=== PATIENT | female | born 1995 | race Two or more races ===

== ENCOUNTER 2022-08-16 07:36 | Emergency (ER) | payer OTHER ==
[~2022-08-16] VITALS: Ht 152.4 cm; Wt 71.7 kg
== END 2022-08-16 13:08 | disposition home or self-care (01) ==
LOC: ER 07:36
DX: B34.8 Other viral infections of unspecified site (principal); Z20.828 Contact with and (suspected) exposure to other viral communicable diseases

== ENCOUNTER 2022-09-25 07:55 | Outpatient (CLI) | payer OTHER | END 2022-09-25 09:15 | disposition home or self-care (01) | LOC: PRENATAL 07:55 | PROVIDERS: ATTEND Obstetrics & Gynecology Maternal & Fetal Medicine | DX: O35.9XX0 Maternal care for (suspected) fetal abnormality and damage, unspecified, not applicable or unspecified (principal); O35.3XX0 Maternal care for (suspected) damage to fetus from viral disease in mother, not applicable or unspecified; Z3A.20 20 weeks gestation of pregnancy ==

== ENCOUNTER 2022-11-20 15:08 | Outpatient (CLI) | payer OTHER | END 2022-11-20 16:02 | disposition home or self-care (01) | LOC: PRENATAL 15:08 | PROVIDERS: ATTEND Obstetrics & Gynecology Maternal & Fetal Medicine | DX: O26.849 Uterine size-date discrepancy, unspecified trimester (principal); Z3A.28 28 weeks gestation of pregnancy ==

== ENCOUNTER 2023-01-01 14:45 | Outpatient (CLI) | payer OTHER | END 2023-01-02 17:40 | disposition home or self-care (01) | LOC: OBS/DEL 14:45 | PROVIDERS: ATTEND Obstetrics & Gynecology | DX: O26.893 Other specified pregnancy related conditions, third trimester (principal); R42 Dizziness and giddiness; S30.0XXA Contusion of lower back and pelvis, initial encounter; W19.XXXA Unspecified fall, initial encounter; Y93.89 Activity, other specified; Y92.098 Other place in other non-institutional residence as the place of occurrence of the external cause; Y99.8 Other external cause status; Z3A.34 34 weeks gestation of pregnancy; Z20.822 Contact with and (suspected) exposure to COVID-19 ==

== ENCOUNTER 2023-02-11 06:46 | Inpatient (IN) | payer OTHER ==
[~2023-02-11] VITALS: Ht 152.4 cm; Wt 3.2 kg
[2023-02-11] MEDS ORDERED: NEXIUM 24HR20 M1 PO (07:35)
[2023-02-11] MEDS ORDERED: PRENATAL TABLE1 EAC1 PO (07:35)
== END 2023-02-14 12:56 | disposition home or self-care (01) | DRG 788 ==
LOC: OBS/DEL 06:46 → LDR 07:52 → OB/GYN 07:52 → O/R 17:49 → OB/GYN 20:06
PROVIDERS: ADMIT Obstetrics & Gynecology; ATTEND Obstetrics & Gynecology
PROC: 4A1HXCZ Monitoring of Products of Conception, Cardiac Rate, External Approach (ICD-10-PCS; 2023-02-11)
PROC: 3E033VJ Introduction of Other Hormone into Peripheral Vein, Percutaneous Approach (ICD-10-PCS; 2023-02-11)
PROC: 3E0P7VZ Introduction of Hormone into Female Reproductive, Via Natural or Artificial Opening (ICD-10-PCS; 2023-02-11)
PROC: 10D00Z1 Extraction of Products of Conception, Low, Open Approach (ICD-10-PCS; principal; 2023-02-11 17:00)
DX: O61.0 Failed medical induction of labor (principal); Z3A.40 40 weeks gestation of pregnancy; Z37.0 Single live birth; Z20.822 Contact with and (suspected) exposure to COVID-19

== ENCOUNTER → 2023-03-25 | Emergency (ER) | payer OTHER ==
[~2023-03-25] MED LIST: NEXIUM 24HR20 M1 PO; PRENATAL TABLE1 EAC1 PO
== END | disposition left against medical advice (07) ==
LOC: ER 18:19
DX: Z53.21 Procedure and treatment not carried out due to patient leaving prior to being seen by health care provider (principal)

== ENCOUNTER 2023-07-09 19:36 | Emergency (ER) | payer OTHER ==
[~2023-07-09] VITALS: Ht 152.4 cm; Wt 77.1 kg
[2023-07-09 22:16] LABS: HEMATOCRIT 38.3 % (36.0-45.00); HEMOGLOBIN 12.5 g/dL (12.0-15.00); MEAN CORPUSCULAR HEMOGLOBIN 26.8 pg (27.00-32.0); MEAN CORPUSCULAR HGB CONC 32.7 g/dl (32.0-36.0); PLATELET COUNT 236 K/uL (150-450); RED BLOOD COUNT 4.67 M/uL (4.00-6.00); RED CELL DISTRIBUTION WIDTH 15.6 % (11.5-14.5)
== END 2023-07-09 22:52 | disposition home or self-care (01) ==
LOC: ER 19:36
PROVIDERS: General Practice
DX: J06.9 Acute upper respiratory infection, unspecified (principal); Z20.822 Contact with and (suspected) exposure to COVID-19

== ENCOUNTER 2024-07-23 11:40 | Emergency (ER) | payer OTHER ==
[~2024-07-23] VITALS: Ht 152.4 cm; Wt 73.5 kg
[2024-07-23] MEDS ORDERED: [UNRECOGNIZED DRUG - OTHER] OP (13:58)
[2024-07-23] MEDS ORDERED: EYE WASH IRRIG OP (13:58)
[2024-07-23 14:52] VITALS: BP 101/69; O2SAT 99
== END 2024-07-23 14:53 | disposition home or self-care (01) ==
LOC: ER 11:40
DX: S05.8X2A Other injuries of left eye and orbit, initial encounter (principal); X58.XXXA Exposure to other specified factors, initial encounter; Y93.89 Activity, other specified; Y92.89 Other specified places as the place of occurrence of the external cause; Y99.8 Other external cause status; R53.81 Other malaise

== ENCOUNTER 2024-07-27 04:00 | Outpatient (CLI) | payer OTHER ==
[~2024-07-27 04:00] MED LIST changes: +EYE WASH IRRIG OP; +[UNRECOGNIZED DRUG - OTHER] OP
[2024-08-13] MEDS ORDERED: DICLOFENAC SODI75 MG PO (22:03)
== END 2024-07-27 04:15 | disposition home or self-care (01) ==
LOC: PPH VACUNA 04:00
PROVIDERS: ATTEND Emergency Medicine Pediatric Emergency Medicine
DX: Z23 Encounter for immunization (principal)

== ENCOUNTER 2024-08-07 11:36 | Emergency (ER) | payer OTHER ==
[~2024-08-07] VITALS: Ht 152.4 cm; Wt 72.6 kg
[2024-08-07] MEDS ORDERED: 0.9 % SODIUM CHLORIDE 1,000 ML IV STA (13:41)
[2024-08-07] MEDS ORDERED: FAMOTIDINE/PF 20 MG/2 ML VIAL IV STA (14:01)
[2024-08-07] MEDS ORDERED: ONDANSETRON HCL 2 MG/ML VIAL IV STA (14:01)
[2024-08-07 14:36] LABS: HEMATOCRIT 40.3 % (36.0-45.00); MEAN CELL VOLUME 86.4 fL (80.00-100.00); MEAN CORPUSCULAR HEMOGLOBIN 27.9 pg (27.00-32.0); MEAN CORPUSCULAR HGB CONC 32.3 g/dl (32.0-36.0); PLATELET COUNT 254 K/uL (150-450); RED BLOOD COUNT 4.66 M/uL (4.00-6.00); RED CELL DISTRIBUTION WIDTH 14.6 % (11.5-14.5)
[2024-08-07 15:05] LABS: ALBUMIN 4.2 gm/dL (3.4-5.0); BILIRUBIN TOTAL 1.35 mg/dL (0.3-1.2); CALCIUM 9.4 mg/dL (8.5-10.1); CREATININE SERUM 0.72 mg/dL (0.55-1.02); GFR 97.17; POTASSIUM 4.04 mEq/L (3.5-5.1); TOTAL PROTEIN 8.2 gm/dL (6.4-8.2)
== END 2024-08-07 16:43 | disposition home or self-care (01) ==
LOC: ER 11:38
PROVIDERS: Emergency Medicine
DX: K52.1 Toxic gastroenteritis and colitis (principal)

== ENCOUNTER → 2024-12-28 14:16 | Outpatient (CLI) | payer OTHER ==
[~2024-12-28 14:16] MED LIST changes: +DICLOFENAC SODI75 MG PO
== END | disposition home or self-care (01) ==
LOC: LAB 14:16
PROVIDERS: ATTEND Preventive Medicine Occupational Medicine
DX: J11.1 Influenza due to unidentified influenza virus with other respiratory manifestations (principal); Z20.828 Contact with and (suspected) exposure to other viral communicable diseases

== ENCOUNTER 2025-06-03 08:22 | Emergency (ER) | payer OTHER ==
[~2025-06-03] VITALS: Ht 152.4 cm; Wt 72.6 kg
[2025-06-03] MEDS ORDERED: 0.9 % SODIUM CHLORIDE 1,000 ML IV STA (08:43)
[2025-06-03 09:51] LABS: BASO % 0.1 % (0.1-1.2); EOS # 0.02 (0.04-0.54); EOS % 0.2 % (0.7-7.0); LYMPH # 0.71 (1.18-3.74); LYMPH % 7.5 % (19.3-53.1); MEAN PLATELET VOLUME 11.30 fl (9.4-12.4); MONO # 0.65 (0.24-0.82); MONO % 6.9 % (4.7-12.5); NEUT # 7.99 (1.56-6.13); NEUT % 84.8 % (34.0-71.1); RED CELL DISTRIBUTION WIDTH 12.8 % (11.6-14.4)
[2025-06-03 09:59] LABS: URINE APPEARANCE Cloudy; URINE BILIRRUBIN Small (NEGATIVE); URINE BLOOD Small; URINE COLOR Dark Yellow; URINE GLUCOSE Negative (NEGATIVE); URINE KETONE Trace (NEGATIVE); URINE LEUKOCYTE Trace; URINE NITRATE Negative; URINE UROBILINOGEN 1.0 E.U./dl
[2025-06-03 10:04] LABS: URINE BACTERIA 8206.7 uL (0.0-1933); URINE EPITHELIAL CELLS 139.6 uL (0.0-38.8); URINE RBC 94.4 uL (0.0-20.8); URINE WBC 40.4 uL (0.0-23.2)
[2025-06-03 10:13] LABS: URINE CAST 0.14 uL (0.0-1.40); URINE PROTEIN 100 (NEGATIVE)
[2025-06-03 10:14] LABS: URINE MUCUS HEAVY
[2025-06-03 10:23] LABS: BUN CREA RATIO 20.0 (7.0-25.0); CREATININE SERUM 0.8 mg/dL (0.55-1.02); GFR 85.41; GLUCOSE FASTING 85.0 mg/dL (65-100); OSMOLALITY SERUM 280.0 MOSM/KG (275-295)
[2025-06-03] MEDS ORDERED: CIPROFLOXACIN IN 5 % DEXTROSE 400 MG/200 ML PIGGYBAG IV ONE ×2 (11:06→11:15)
[2025-06-03] MEDS ORDERED: METRONIDAZOLE/SODIUM CHLORIDE 500 MG/100 ML PIGGYBACK IV ONE ×2 (11:07→11:15)
[2025-06-03] MEDS ORDERED: KETOROLAC TROMETHAMINE 30 MG VIAL IV STA (14:21)
[2025-06-03] MEDS ORDERED: KETOROLAC TROMETHAMINE 30 MG VIAL ONE (14:21)
[2025-06-03] MEDS ORDERED: FAMOTIDINE/PF 20 MG/2 ML VIAL ONE (14:21)
[2025-06-03] MEDS ORDERED: FAMOTIDINE/PF 20 MG/2 ML VIAL IV PUSH STA (14:31)
== END 2025-06-03 15:45 | disposition home or self-care (01) ==
LOC: ER 08:45
PROVIDERS: Emergency Medicine
DX: K52.89 Other specified noninfective gastroenteritis and colitis (principal)

== ENCOUNTER 2025-07-14 13:40 | Outpatient (CLI) | payer OTHER | END 2025-07-14 13:43 | disposition home or self-care (01) | LOC: SONOGRAMA 13:40 | DX: N18.1 Chronic kidney disease, stage 1 (principal); R31.9 Hematuria, unspecified; R80.8 Other proteinuria ==

== ENCOUNTER 2025-07-23 18:24 | Emergency (ER) | payer OTHER ==
[~2025-07-23] VITALS: Ht 152.4 cm; Wt 75.7 kg
[2025-07-23] MEDS ORDERED: KETOROLAC TROMETHAMINE 30 MG VIAL IM STA (21:05)
[2025-07-23] MEDS ORDERED: LUBRICANT 0.5-015 ML OP (21:13)
== END 2025-07-23 22:18 | disposition home or self-care (01) ==
LOC: ER 18:24
DX: S05.8X2A Other injuries of left eye and orbit, initial encounter (principal); W22.8XXA Striking against or struck by other objects, initial encounter; Y93.89 Activity, other specified; Y92.89 Other specified places as the place of occurrence of the external cause

== ENCOUNTER 2025-07-27 09:00 | Outpatient (CLI) | payer OTHER ==
[~2025-07-27 09:00] MED LIST changes: +LUBRICANT 0.5-015 ML OP
== END 2025-07-27 09:10 | disposition home or self-care (01) ==
LOC: PPH VACUNA 09:00
PROVIDERS: ATTEND Emergency Medicine Pediatric Emergency Medicine
DX: Z23 Encounter for immunization (principal)